=== PATIENT | male | born 1980 | race Two or more races ===

== ENCOUNTER → 2017-05-19 10:25 | Outpatient (CLI) | payer BC | END | disposition home or self-care (01) | LOC: D.US 10:25 | DX: R59.9 Enlarged lymph nodes, unspecified (principal) ==

== ENCOUNTER 2017-06-19 18:24 | Emergency (ER) | payer BC ==
[2017-06-19 20:20] LABS: COLOR YELLOW (YELLOW)
[2017-06-19 20:21] LABS: APPEARANCE CLEAR (CLEAR); BILIRUBIN NEGATIVE (NEGATIVE); GLUCOSE 1000 mg/dL (NEGATIVE); KETONE NEGATIVE (NEGATIVE); LEUKOCYTE ESTERASE NEGATIVE (NEGATIVE); NITRITE NEGATIVE (NEGATIVE); PROTEIN NEGATIVE (NEGATIVE); SPECIFIC GRAVITY 1.015 (1.005-1.020); UROBILINOGEN NORMAL (NORMAL)
== END 2017-06-19 21:15 | disposition home or self-care (01) ==
LOC: D.ER 18:24
PROVIDERS: Emergency Medicine
DX: S70.02XA Contusion of left hip, initial encounter (principal); W19.XXXA Unspecified fall, initial encounter; Y93.89 Activity, other specified; Y92.89 Other specified places as the place of occurrence of the external cause

== ENCOUNTER 2020-04-22 14:40 | Emergency (ER) | payer BC ==
[~2020-04-22] VITALS: Ht 170.2 cm; Wt 96.8 kg
[2020-04-22 14:43] VITALS: Ht 170.2 cm; Wt 96.8 kg
[2020-04-22] MEDS ORDERED: GLUCOPHAGE500 MG (14:44)
[2020-04-22] MEDS ORDERED: TORADOL10 MG PO (15:23)
[2020-04-22] MEDS ORDERED: CYCLOBENZAPRINE10 MG PO (15:23)
[2020-04-22 16:32] VITALS: BP 138/92
== END 2020-04-22 16:25 | disposition home or self-care (01) ==
LOC: D.ER 14:40
DX: S39.012A Strain of muscle, fascia and tendon of lower back, initial encounter (principal); S16.1XXA Strain of muscle, fascia and tendon at neck level, initial encounter; S13.4XXA Sprain of ligaments of cervical spine, initial encounter; V89.2XXA Person injured in unspecified motor-vehicle accident, traffic, initial encounter; Y93.9 Activity, unspecified; Y92.9 Unspecified place or not applicable; E11.9 Type 2 diabetes mellitus without complications; Z79.84 Long term (current) use of oral hypoglycemic drugs